=== PATIENT | female | born 1975 | race Caucasian/White ===

== ENCOUNTER 2016-07-11 01:32 | Emergency (ER) | payer MEDICAID ==
[2016-07-11] MEDS ORDERED: NS 1,000 ML IV ONE (01:37)
[2016-07-11] MEDS ORDERED: fentaNYL 100 MCG/2 ML INJ IVP ONE ×2 (01:37→02:07)
[2016-07-11] MEDS ORDERED: ONDANSETRON 4 MG/2 ML VIAL IVP ONE (01:37)
--- NOTE | 2016-07-11 01:43 | EDPHY ---
H & P HPI/ROS: HPI CHIEF COMPLAINT: Fall, head injury HISTORY OF PRESENT ILLNESS: This patient very pleasant 40-year-old female she does have significant past x-ray DVT however no longer on blood thinners or any anticoagulation no aspirin, history right knee surgery, presents to the emergency room after she slipped on a sidewalk on ice she fell directly backwards with a head strike. No LOC. She does have nausea but no vomiting. She was brought to the emergency room as a GCS 15, alert and oriented x4, mentating appropriately. She complains of posterior right headache. With associated nausea. She was given Zofran and intranasal fentanyl 100 mcg by EMS EN route however she still complains of a throbbing 6/10 right-sided posterior headache. Does still endorse nausea. Denies any other areas of injury specifically denies arm pain, chest pain, shortness of breath, abdominal pain or back pain. She does admit to alcohol this evening she tells me she had 2 beers. Past Medical History: DVT, history of closed head injury, Past Surgical History: Right knee surgery x2 Social History: Occasional alcohol use, denies drugs or tobacco products, unemployed, lives in [place] Family History: Noncontributory ROS REVIEW OF SYSTEMS: A comprehensive 10 point review of systems is otherwise negative aside from elements mentioned in the history of present illness. Exam Constitutional GCS 15, alert and oriented x4, triage nursing summary reviewed , vital signs reviewed, awake/alert. Eyes normal conjunctivae and sclera, EOMI, PERRLA. HENT head/neck: right posterior occiput hematoma, no laceration, it is tender palpation, no crepitus, no significant cervical spine tenderness or step-offs, moist mucus membranes, no epistaxis, neck supple/ no meningismus, no raccoon eyes. Respiratory clear to auscultation bilaterally, normal breath sounds, no respiratory distress, no wheezing. Cardiovascular rate normal, regular rhythm, no murmur, no edema, distal pulses normal. Gastrointestinal soft, non-tender, no rebound, no guarding, normal bowel sounds, no distension, no pulsatile mass. Genitourinary no CVA tenderness. Musculoskeletal no midline vertebral tenderness, full range of motion, no calf swelling, no tenderness of extremities, no meningismus, good pulses, neurovascularly intact. Skin pink, warm, & dry, no rash, skin atraumatic. Neurologic awake, alert and oriented x 3, AAOx3, moves all 4 extremities equally, motor intact, sensory intact, CN II-XII intact, normal cerebellar, normal vision, normal speech. Psychiatric normal mood/affect. Heme/Lymph/Immune no lymphadenopathy. Differential Diagnosis: Includes but is not limited to in a particular order, closed head injury injury, cervical spine injury, closed head injury, intracranial bleed, subdural Medical Decision Making: Due to this patient's nausea and pain she will have an IV established receive a fluid bolus, Zofran IV fentanyl. She will need a CT scan of the neck for trauma , no significant signs of neck trauma exam however does have history acting injury right occipital hematoma, and had alcohol this evening. This patient had a CT head and CT cervical spine rule out significant trauma Re-evaluation: CT scan of the Head without IV contrast for trauma. The results of the study are negative for acute traumatic injury no skull fracture, no bleed. The study was read by Dr. Preston I viewed the images myself on the PACS system. CT scan of the cervical spine without IV contrast for trauma The results of the study are negative for acute traumatic injury The study was read by Dr. Preston. I viewed the images myself on the PACS system. 0240: Re-examination at this time this patient is up ambulating without difficulty, unremarkable neurological exam she is not vomiting her pain is well control with 100 mcg IV fentanyl given here in the emergency room. Is noted her blood alcohol level is 200. Her CT scan of her head and neck have been reviewed and are normal. She is agreeable going home most likely she has closed- head injury, concussion I prescribed her Tylenol for pain control and Zofran for nausea. She does understand strict return precautions she understands return to the emergency room if she develops any worsening symptoms this includes worsening headache, vomiting or questions or concerns. Source: Patient - Medical/Surgical History Hx Asthma: No Hx Chronic Respiratory Disease: No Hx Diabetes: No Hx Cardiac Disease: No Hx Renal Disease: No Hx Cirrhosis: No Hx Alcoholism: No Hx HIV/AIDS: No Hx Splenectomy or Spleen Trauma: No Other PMH: Torn ACL. Fornix suture closure, depression, DVT. - Social History Smoking Status: Never smoked Constitutional: Initial Vital Signs Temperature (C) 36.8 C 07/11/16 01:35 Heart Rate 89 01/09/17 01:35 Respiratory Rate 16 07/11/16 01:35 Blood Pressure 125/81 H 07/11/16 01:35 O2 Sat (%) 96 07/11/16 01:35 O2 Delivery Mode Room Air Allergies/Adverse Reactions: No Known Allergies Allergy (Verified 07/11/16 01:48) Home Medications: Medication Instructions Recorded ARIPiprazole [Abilify] 5 mg PO DAILY 09/25/14 Ondansetron HCl [Zofran] 4 mg PO Q4-6PRN PRN #10 tablet 07/11/16 Medical Decision Making - Data Points Laboratory Results: Laboratory Results 07/11/16 01:45 07/11/16 01:45 07/11/16 01:45 WBC 7.04 10^3/uL (3.80-9.50) RBC 4.58 10^6/uL (4.18-5.33) Hgb 14.5 g/dL (12.6-16.3) Hct 42.6 % (38.0-47.0) MCV 93.0 fL (81.5-99.8) MCH 31.7 pg (27.9-34.1) MCHC 34.0 g/dL (32.4-36.7) RDW 12.4 % (11.5-15.2) Plt Count 297 10^3/uL (150-400) MPV 9.2 fL (8.7-11.7) Neut % (Auto) 38.2 L % (39.3-74.2) Lymph % (Auto) 48.6 H % (15.0-45.0) [place] % (Auto) 7.8 % (4.5-13.0) Eos % (Auto) 2.4 % (0.6-7.6) Baso % (Auto) 0.7 % (0.3-1.7) Nucleat RBC Rel Count 0.0 % (0.0-0.2) Absolute Neuts (auto) 2.69 10^3/uL (1.70-6.50) Absolute Lymphs (auto) 3.42 H 10^3/uL (1.00-3.00) Absolute Monos (auto) 0.55 10^3/uL (0.30-0.80) Absolute Eos (auto) 0.17 10^3/uL (0.03-0.40) Absolute Basos (auto) 0.05 10^3/uL (0.02-0.10) Absolute Nucleated RBC 0.00 10^3/uL (0-0.01) Immature Gran % 2.3 H % (0.0-1.1) Immature Gran # 0.16 H 10^3/uL (0.00-0.10) PT 11.8 L SEC (12.0-15.0) INR 0.88 (0.83-1.16) APTT 22.7 L SEC (23.0-38.0) Sodium 144 mEq/L (134-144) Potassium 4.5 mEq/L (3.5-5.2) Chloride 105 mEq/L (97-110) Carbon Dioxide 25 mEq/l (22-31) Anion Gap 14 mEq/L (8-16) BUN 8 mg/dL (7-23) Creatinine 0.7 mg/dL (0.6-1.0) Estimated GFR > 60 Glucose 108 H mg/dL (70-100) Calcium 8.7 mg/dL (8.5-10.4) Ethyl Alcohol 205 H mg/dL (0-10) Medications Given: Discontinued Medications Fentanyl (Sublimaze) 50 mcg IVP EDNOW ONE Stop: 07/11/16 01:38 Last Admin: 07/11/16 01:48 Dose: 50 mcg Fentanyl (Sublimaze) 50 mcg IVP EDNOW ONE Stop: 07/11/16 02:08 Last Admin: 07/11/16 02:17 Dose: 50 mcg Sodium Chloride (Ns) 1,000 mls @ 0 mls/hr IV ONCE ONE PRN Reason: Wide Open Stop: 07/11/16 01:38 Last Admin: 07/11/16 01:56 Dose: 1,000 mls Departure - Departure Disposition: Home, Routine, Self-Care Clinical Impression: Closed head injury Qualifiers: Encounter type: initial encounter Qualifier Code: (S09.90XA) Unspecified injury of head, initial encounter Fall Qualifiers: Encounter type: initial encounter Qualifier Code: (W19.XXXA) Unspecified fall, initial encounter Concussion Qualifiers: Encounter type: initial encounter Loss of consciousness presence/duration: without LOC Qualifier Code: (S06.0X0A) Concussion without loss of consciousness , initial encounter Condition: Good Instructions: Concussion (ED), Post Concussion Syndrome (ED), Head Injury (ED) Additional Instructions: 1. stay well-hydrated 2. stay in a low stimulus environment for the next 24-48 hours 3. return to the emergency room if develops worsening headache, vomiting or questions or concerns. Referrals: [place],. [Primary Care Provider] - As per Instructions Xiao Gibson MD [Medical Doctor] - As per Instructions Prescriptions: Ondansetron HCl [Zofran] 4 mg PO Q4-6PRN PRN #10 tablet PRN Reason: Nausea/Vomiting, Use 1st
[2016-07-11 01:50] VITALS: RESP 16; TEMP 98.2; O2SAT 96
[2016-07-11 01:57] LABS: % IMMATURE GRANULYOCYTES 2.3 % (0.0-1.1); ABSOLUTE IMMATURE GRANULOCYTES 0.16 10^3/uL (0.00-0.10); ADD DIFF? NO; ADD MORPH? NO; ADD SCAN? NO; ATYPICAL LYMPHOCYTE FLAG 10 (0-99); FRAGMENT RBC FLAG 0 (0-99); HEMATOCRIT 42.6 % (38.0-47.0); HEMOGLOBIN 14.5 g/dL (12.6-16.3); LEFT SHIFT FLG 20 (0-99); LIPEMIA HEMOLYSIS FLAG 90 (0-99); MEAN CELL HEMOGLOBIN 31.7 pg (27.9-34.1); MEAN PLATELET VOLUME 9.2 fL (8.7-11.7); PLATELET CLUMPS FLAG 0 (0-99); PLATELET COUNT 297 10^3/uL (150-400); RED BLOOD CELL COUNT 4.58 10^6/uL (4.18-5.33); RED CELL DISTRIBUTION WIDTH 12.4 % (11.5-15.2)
[2016-07-11 02:09] LABS: ANION GAP 14 mEq/L (8-16); CALCIUM 8.7 mg/dL (8.5-10.4); CARBON DIOXIDE 25 mEq/l (22-31); CHLORIDE 105 mEq/L (97-110); CREATININE 0.7 mg/dL (0.6-1.0); ETHANOL SERUM 205 mg/dL (0-10); GLOMERULAR FILTRATION RATE > 60; GLUCOSE 108 mg/dL (70-100); POTASSIUM 4.5 mEq/L (3.5-5.2); SODIUM 144 mEq/L (134-144)
[2016-07-11 02:19] LABS: APTT 22.7 SEC (23.0-38.0); INR 0.88 (0.83-1.16); PROTIME(PATIENT) 11.8 SEC (12.0-15.0)
[2016-07-11 03:04] VITALS: BP 100/62; PULSE 84
--- NOTE | 2016-07-11 09:24 | CT ---
CT Brain (Without Contrast) 0152 hours History: Head trauma, headache. Fall and hit back of head. Comparison: None. Technique: Axial computed tomographic images of the brain without contrast. Dose reduction technique s were utilized. Findings: Ventricles, cisterns, and sulci are normal without atrophy, hydrocephalus, midline shift/h erniation, or epidural/subdural hematomas. No acute intraparenchymal hemorrhage, definite infarct, or mass effect. Bone windows demonstrate no displaced fractures. Paranasal sinuses and mastoid air cell s are clear. Impression: 1. Normal CT brain without contrast. 2. No epidural or subdural hematoma. Findings and recommendations discussed with Emergency Department physician, Dr. Demetris Peterson, at 0 220 hours today. Final report concurs with initial preliminary interpretation.
--- NOTE | 2016-07-11 09:31 | CT ---
CT Scan of the Cervical Spine (Without Contrast) (With Multiplanar Reconstructions) 0152 hours Clinical Indications: Fall, pain. Head trauma, headache. Fall and hit back of head. Technique: Thinly collimated multidetector helical CT imaging of the cervical spine was reviewed in multiple planes. Multiplanar reconstructions reviewed on [employer] workstation and performed to better e valuate alignment. Dose reduction techniques were utilized. Findings: No definite acute cervical spine fracture. Slight reversal of the normal lordotic curvatur e without cervical compression fractures or spondylolisthesis. Odontoid appears intact. Spinous proce sses appear intact. No craniocervical junction fractures. No bony central canal or neural foraminal s tenosis. No prevertebral soft tissue swelling. Impression: 1. No definite fracture. 2. If there is persistent pain or neurological deficit, recommend MR cervical spine and consider flex ion and extension views, if clinically indicated. Findings and recommendations discussed with Emergency Department physician, Dr. Demetris Peterson, at 0 220 hours today. Final report concurs with initial preliminary interpretation.
== END 2016-07-11 03:11 | disposition home or self-care (01) ==
LOC: EDBD → EDUNIT#
DX: S06.0X0A Concussion without loss of consciousness, initial encounter (principal); W00.0XXA Fall on same level due to ice and snow, initial encounter; Y92.89 Other specified places as the place of occurrence of the external cause; Y93.89 Activity, other specified
CPT/HCPCS: 96374; G0480; J2405; J3010

== ENCOUNTER → 2018-07-11 | Outpatient (CLI) | payer MEDICAID | LOC: FIMAGING 12:21 | PROVIDERS: ATTEND Family Medicine | DX: Z86.718 Personal history of other venous thrombosis and embolism (principal) ==

== ENCOUNTER 2018-07-17 05:51 | Day surgery (SDC) | payer MEDICAID ==
[2018-07-17] MEDS ORDERED: LIDOCAINE 1% 2 ML INJ ID PRN (06:12)
[2018-07-17] MEDS ORDERED: ACETAMINOPHEN 500 MG TAB PO ONE (06:12)
[2018-07-17] MEDS ORDERED: ceFAZolin 2 GM/DEXTROSE 100 ML IV ONE (06:12)
[2018-07-17] MEDS ORDERED: LR 1,000 ML IV ONE (06:12)
[2018-07-17] MEDS ORDERED: PREGABALIN 150 MG CAP PO ONE (06:12)
[2018-07-17] MEDS ORDERED: EPINEPHrine 30 MG/30 ML MDV (0.1 MG/0.1 ML) ONE (06:54)
[2018-07-17] MEDS ORDERED: BUPIVACAINE/EPI 0.5% 30 ML SDV ONE (06:54)
[2018-07-17] MEDS ORDERED: MIDAZOLAM 2 MG/2 ML VIAL IVP ONE ×2 (07:04→08:46)
--- NOTE | 2018-07-17 07:04 | PDANEPAE ---
ANE History of Present Illness left knee pain ANE Past Medical History - Cardiovascular History Hx Hypertension: No Hx Arrhythmias: No Hx Chest Pain: No Hx Coronary Artery / Peripheral Vascular Disease: No Hx CHF / Valvular Disease: No Hx Palpitations: No Cardiovascular History Comment: MILD ELEV BP RECENTLY - Pulmonary History Hx COPD: No Hx Asthma/Reactive Airway Disease: Yes Hx Recent Upper Respiratory Infection: No Hx Oxygen in Use at Home: No Hx Sleep Apnea: No Sleep Apnea Screening Result - Last Documented: Negative Pulmonary History Comment: HX ASTHMA - EXERCISE/ALTITUDE INDUCED - Neurologic History Hx Cerebrovascular Accident: No Hx Seizures: No Hx Dementia: No Neurologic History Comment: HEADACHES - Endocrine History Hx Diabetes: No Hypothyroid: No Hyperthyroid: No Obesity: mild - Renal History Hx Renal Disorders: No - Liver History Hx Hepatic Disorders: No - Neurological & Psychiatric Hx Hx Neurological and Psychiatric Disorders: Yes Neurological / Psychiatric History Comment: Depression, bipolar. - Cancer History Hx Cancer: No - Congenital Disorder History Hx Congenital Disorders: No - GI History GERD: no Hx Gastrointestinal Disorders: No Gastrointestinal History Comment: HX ULCERS 12/2016 - Other Health History Other Health History: DVT FOLLOWING DISLOCATED KNEE - SEEN IN ED 05/2018 - STARTED ON XARELTO BUT PT STATES STOPPED TAKING DUE TO SIDE EFFECTS. - Chronic Pain History Chronic Pain: Yes (L KNEE) - Surgical History Prior Surgeries: L KNEE REPAIR. R KNEE REPAIR X2. 2001-vaginal repair. ANE Review of Systems Review of systems is: negative Review of Systems: - Exercise capacity Exercise capacity: >=4 METS METS (RN): 4 METS ANE Patient History - Allergies Allergies/Adverse Reactions: No Known Allergies Allergy (Unverified 07/17/18 06:23) - Home Medications Home medications: home medication list seen and reviewed Home Medications: NK [No Known Home Meds] 07/17/18 [Last Taken Unknown] - NPO status NPO Status: no food or drink >8 hours NPO Since - Liquids (Date): 07/16/18 NPO Since - Liquids (Time): 02:20 NPO Since - Solids (Date): 07/16/18 NPO Since - Solids (Time): 21:00 - Anes Hx Anes Hx: no prior problems - Smoking Hx Smoking Status: Never smoked - Family Anes Hx Family Hx Anesthesia Complications: Adopted unknown. ANE Labs/Vital Signs - Vital Signs Vital Signs: reviewed preoperatively; see RN documention for details Blood Pressure: 120/79 Heart Rate: 70 Respiratory Rate: 18 O2 Sat (%): 97 Height: 160.02 cm Weight: 79.379 kg ANE Physical Exam - Airway Neck exam: FROM Mallampati Score: Class 2 Mouth exam: normal dental/mouth exam - Pulmonary Pulmonary: no respiratory distress - Cardiovascular Cardiovascular: regular rate and rhythym - ASA Status ASA Status: II ANE Anesthesia Plan Anesthesia Plan: GA w LMA Regional Anesthesia: single shot NB, adductor canal FNB
[2018-07-17] MEDS ORDERED: PROPOFOL 200 MG/20 ML VIAL ONE ×2 (07:10→07:40)
[2018-07-17] MEDS ORDERED: fentaNYL 100 MCG/2 ML INJ ONE ×3 (07:10→08:39)
--- NOTE | 2018-07-17 07:13 | PDHPUP ---
History & Physical Update H&P update statement: This history and physical update is based on an assessment of the patient which was completed after admission or registration (within 24 hours), but prior to the surgery/procedure. H&P update: H&P reviewed & patient examined, no change in patient's condition since H&P completed
[2018-07-17] MEDS ORDERED: PROMETHAZINE HCL 25 MG/ML INJ IVP PRN ×2 (07:57→08:36)
[2018-07-17] MEDS ORDERED: MEPERIDINE 25 MG/0.5 ML AMP IVP PRN (07:57)
[2018-07-17] MEDS ORDERED: NALOXONE HCL 0.4 MG/ML INJ IVP PRN (07:57)
[2018-07-17] MEDS ORDERED: LABETALOL HCL 5 MG/ML 20 ML MDV IVP PRN (07:57)
[2018-07-17] MEDS ORDERED: METOCLOPRAMIDE 10 MG/2 ML VIAL IVP PRN ×2 (07:57→08:36)
[2018-07-17] MEDS ORDERED: oxyCODONE IR 5 MG TAB PO PRN (07:57)
[2018-07-17] MEDS ORDERED: ACETAMINOPHEN 500 MG TAB PO PRN (07:57)
[2018-07-17] MEDS ORDERED: PHENYLEPHRINE HCL 100 MCG/ML SYR IVP PRN (07:57)
[2018-07-17] MEDS ORDERED: ALBUTEROL 3 ML DEYVIAL IH PRN (07:57)
[2018-07-17] MEDS ORDERED: LR 500 ML IV PRN (07:57)
[2018-07-17] MEDS ORDERED: CALCIUM CHLORIDE 1 GM/10 ML INJ ONE (08:06)
[2018-07-17] MEDS ORDERED: THROMBIN (BOVINE) 5,000 UNIT VIAL TP ONE (08:06)
[2018-07-17] MEDS ORDERED: ONDANSETRON 4 MG/2 ML VIAL ONE (08:26)
[2018-07-17] MEDS ORDERED: LIDOCAINE 2% 5 ML SDV ONE (08:27)
[2018-07-17] MEDS ORDERED: DEXAMETHASONE 4 MG/ML VIAL ONE (08:27)
[2018-07-17] MEDS ORDERED: LACTULOSE 20 GM/30 ML UDCUP PO PRN (08:36)
[2018-07-17] MEDS ORDERED: BISACODYL 10 MG SUPP PR PRN (08:36)
[2018-07-17] MEDS ORDERED: ONDANSETRON 4 MG/2 ML VIAL IVP PRN (08:36)
[2018-07-17] MEDS ORDERED: MAGNESIUM HYDROXIDE 30 ML UDCUP PO PRN (08:36)
[2018-07-17] MEDS ORDERED: CYCLOBENZAPRINE 10 MG TAB PO PRN (08:36)
[2018-07-17] MEDS ORDERED: TEMAZEPAM 15 MG CAP PO PRN (08:36)
[2018-07-17] MEDS ORDERED: diphenhydrAMINE 25 MG CAP PO PRN (08:36)
[2018-07-17] MEDS ORDERED: DIPHENOXYLATE/ATROPINE LOMOTIL 1 TAB PO PRN (08:36)
[2018-07-17] MEDS ORDERED: KETOROLAC 15 MG/1 ML SDV IVP ONE (08:36)
[2018-07-17] MEDS ORDERED: TAPENTADOL HCL 50 MG TAB PO PRN (08:36)
[2018-07-17] MEDS ORDERED: POLYETHYLENE GLYCOL 3350 17 GM PKT PO PRN (08:36)
[2018-07-17] MEDS ORDERED: ONDANSETRON DISINTEGRATING 4 MG TAB PO PRN (08:36)
[2018-07-17] MEDS ORDERED: PROMETHAZINE HCL 25 MG SUPPR PR PRN (08:36)
--- NOTE | 2018-07-17 08:36 | POSTOPPROG ---
Post Op Note Date of Operation: 07/17/18 Surgeon: Brook Corea Anesthesia: LMA, Other (Specify) Pre-op Diagnosis: l mmt/lmt/hoffa pad impingement/pfs Procedure: l knee scope with partial m/l menisectomy/synovectomy/lateral release Inf/Abcess present in the surg proc area at time of surgery?: No Depth: Superfical (Skin SQ) EBL: 50-100
[2018-07-17] MEDS ORDERED: HYDROmorphONE/DILAUDID 2 MG/ML INJ ONE (08:39)
[2018-07-17] MEDS: fentaNYL 100 MCG/2 ML INJ IVP PRN ×2 (08:40→09:11)
[2018-07-17] MEDS: HYDROmorphONE/DILAUDID 2 MG/ML INJ IVP PRN ×4 (08:42→09:23)
[2018-07-17] MEDS ORDERED: MIDAZOLAM 2 MG/2 ML VIAL ONE (08:45)
[2018-07-17] MEDS ORDERED: SENNOSIDES/DOCUSATE SODIUM TAB PO SCH (09:00)
[2018-07-17] MEDS ORDERED: LR 1,000 ML IV SCH (09:00)
--- NOTE | 2018-07-17 09:18 | GHP ---
CURRENT COMPLAINT: Left knee pain. HISTORY OF PRESENT ILLNESS: The patient is a 42-year-old female with a history of Hoffa pad impingem ent, loose body, patellofemoral instability. She wished to have surgery to resolve the problem. She has no drug allergies. Current medication includes pantoprazole. Prior medical problems include ulcers and blood clots. Prior surgeries include ACL reconstruction X2. She has never been a smoker . She is a social drinker. PHYSICAL EXAMINATION: HEENT: The patient's pupils are equal, round, and reactive to light. CHEST: Clear to auscultation. HEART: Regular rate and rhythm. ABDOMEN: Soft and nontender. EXTREMITIES : Knee reveals an effusion to the knee. She is tender to the medial and lateral joint lines. She h as tenderness across the Hoffa pad. MRI exam reveals mild osteoarthritic changes to the medial compartment and enlarged Hoffa pad with __ patella. ASSESSMENT AND PLAN: The patient is status post left knee possible impingement with patellar instabi lity. She is to undergo a left knee scope with Hoffa pad debridement and lateral release. /[id number]/MODL
[2018-07-17] MEDS ORDERED: KETOROLAC 15 MG/1 ML SDV ONE (09:25)
[2018-07-17] MEDS ORDERED: oxyCODONE IR 5 MG TAB ONE (10:06)
--- NOTE | 2018-07-17 10:41 | POSTANESTH ---
Post Anesthetic Evaluation Cardiovascular Status: Normal, Stable Respiratory Status: Normal, Stable Level of Consciousness/Mental Status: Can Participate in Eval Pain Control: Adequate, Prn Tx Ordered Nausea/Vomiting Control: Adequate, Prn Tx Ordered Complications Possibly Related to Anesthesia: None Noted
[2018-07-17 11:02] VITALS: BP 126/82
[2018-07-17] MEDS ORDERED: traMADol 50 MG TAB PO SCH (12:00)
--- NOTE | 2018-07-17 16:27 | GOP ---
DATE OF OPERATION: 07/17/2018 SURGEON: Brook Corea MD ANESTHESIA: LMA. 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 PROCEDURE PERFORMED: Left knee arthroscopy with partial medial and partial lateral meniscectomy, ext ensive synovectomy as well as arthroscopic lateral release. FINDINGS: INDICATIONS: This is a 42-year-old female with a several-month history of left knee pain worsening w ith use with time. MRI exam revealed an abundant amount of synovium associated with the Hoffa pad as well as in the suprapatellar pouch and a lateral riding patella within the trochlear groove. She wi shes to have surgery in order to resolve the problem. DESCRIPTION OF PROCEDURE: The patient was brought to the operating room after the left side had been identified as the correct side by the patient, nurse, and physician. Once in the operating room, becca denton was placed under general anesthesia using an LMA. She was placed in a supine position with tourniq uet placed around the upper portion of the left thigh, and both legs placed in an appropriate leg hol gab. The left lower extremity was then fully prepped and draped in the usual fashion using GSI solut ion. Once prepped and draped, the limb was exsanguinated and tourniquet inflated to 250 mmHg. An in cision was made in the superomedial portion of the knee with an outflow trocar used without difficult y. A 2nd incision was made lateral to the patellar tendon between the inferior pole of the patella a nd tibial plateau with the camera introduced without difficulty. Inspection of the joint revealed a moderate amount of synovium in the suprapatellar pouch as well as grade 2-3 chondral changes noted of the patella and grade 2 chondral change noted of the trochlea. The patella was noted to sit very la terally within the trochlear groove. Further inspection revealed the ACL graft to be intact although frayed. Inspection of the medial compartment revealed no significant chondral changes but a tearing of the root of the medial meniscus. Inspection of the lateral compartment revealed no significant c hondral changes as well as tearing of the root of the lateral meniscus and an abundant amount of syno vium anteriorly. Therefore, a third incision was made medial to the patellar tendon between the infe rior pole of the patella and tibial plateau. A 4.0 mm smooth shaver was used to debride and debulk t he abundant amount of synovium in the anterior portion of the knee, the medial and lateral gutters as well as suprapatellar pouch. The shaver was also used to remove the frayed portions of meniscus at the posterior horns of the medial and lateral menisci as well as some of the frayed portion of the AC L. Once completed, the camera was switched to the medial portal, and an arthroscopic Bovie tip was b rought through the lateral portal and used to create a lateral release extending from the suprapatell ar pouch and extending to the level near the medial meniscus. Once completed, pictures were taken sh owing the patella being in a much more central position within the trochlear groove. Therefore all i nstruments were then removed from the knee with 30 cc of Marcaine infused in the knee joint. The 3 p ortal sites were closed using 3-0 nylon suture in a [id number] type stitch. The wounds were see ssed with Xeroform, 4 x 4, wrapped in Webril. The tourniquet was released at 34 minutes. Leg was co mpletely undraped in the operative, taken out of its leg anton, tourniquet removed from the thigh an d an Carlos Alberto wrap placed around the knee. The right leg was taken out of its leg anton. She was placed supine. She was woken up, extubated, transferred onto a stretcher, and sent to recovery room in goo d condition. TOURNIQUET TIME: 34 minutes. /[id number]/MODL
[2018-07-17] MEDS ORDERED: FAMOTIDINE 20 MG TAB PO SCH (21:00)
== END 2018-07-17 11:04 | disposition home or self-care (01) ==
LOC: FSGY 05:51
PROVIDERS: ATTEND Orthopaedic Surgery
PROC: 0SBD4ZZ Excision of Left Knee Joint, Percutaneous Endoscopic Approach (ICD-10-PCS; principal; 2018-07-17 07:15)
PROC: 0MNP4ZZ Release Left Knee Bursa and Ligament, Percutaneous Endoscopic Approach (ICD-10-PCS; principal; 2018-07-17 07:15)
DX: M76.892 Other specified enthesopathies of left lower limb, excluding foot (principal); M22.02 Recurrent dislocation of patella, left knee; M23.222 Derangement of posterior horn of medial meniscus due to old tear or injury, left knee; M23.252 Derangement of posterior horn of lateral meniscus due to old tear or injury, left knee; J45.909 Unspecified asthma, uncomplicated; F31.9 Bipolar disorder, unspecified
CPT/HCPCS: J0171; J0690; J1100; J1170; J1885; J2250; J2405; J2704; J3010

== ENCOUNTER 2018-07-23 13:22 | Inpatient (IN) | payer MEDICAID ==
[2018-07-23] MEDS ORDERED: NS 2,400 ML IV ONE (14:01)
[2018-07-23 14:09] LABS: PLATELET COUNT 323 10^3/uL (150-400)
[2018-07-23] MEDS ORDERED: HYDROmorphONE/DILAUDID 2 MG/ML INJ IVP ONE ×2 (14:13→14:46)
[2018-07-23 14:17] LABS: INR 0.91 (0.83-1.16); PROTIME(PATIENT) 12.5 SEC (12.0-15.0)
[2018-07-23] MEDS ORDERED: HYDROmorphONE/DILAUDID 1 MG/ML INJ ONE (14:34)
[2018-07-23] MEDS ORDERED: LORazepam 2 MG/ML INJ ONE ×2 (14:44→17:54)
[2018-07-23] MEDS ORDERED: LORazepam 2 MG/ML INJ IVP ONE ×3 (14:46→17:49)
--- NOTE | 2018-07-23 15:10 | EDPHY ---
General - History Smoking Status: Never smoked Time Seen by Provider: 07/23/18 14:01 Narrative: CLINICAL IMPRESSION: Left pulmonary emboli, postoperative knee pain ASSESSMENT/PLAN: 42-year-old female with past medical history of chronic knee dislocations, bilateral lower extremity DVTs, and recent arthroscopic surgery of the left knee by Dr. Corea presents to the emergency department with palpitations, shortness of breath, and worsening left knee pain and swelling over the last 2 days. Patient was taken off her anticoagulation therapy, Xarelto, 2 days preoperatively and restarted 4 days ago. She is 6 days postop. She is highly anxious, tearful, reports a history of feeling as though she is suffocating at night and has had elevated heart rate. She arrives significantly tachycardic, but without respiratory distress, hypoxia or fever. Leg is without significant erythema, warmth, wound dehiscence. She has no leukocytosis, renal insufficiency, electrolyte imbalance. Ultrasound of the leg is negative for DVT. Lactate is normal. Pain well controlled with IV analgesics and Ativan. Given multiple risk factors CTA was performed showing 2 small left-sided pulmonary emboli with no mention of corresponding cor pulmonale. On reassessment, patient states she is"just feeling poorly". She cannot ambulate to the restroom. Will plan to admit to the hospitalist service for further anticoagulation management and pain control. Dr. Trejo with Orthopedics was alerted to the patient's admission for orthopedic consultation. She was stabilized in the ED prior to admission. Case discussed with hospitalist and Dr. Sow. DIFFERENTIAL DX: Differential includes but not limited to postop infection, septic joint, assess bacteremia, DVT, PE, poorly-controlled postoperative pain ED PROCEDURES: See lab and/or imaging results below ED COURSE: 3:00 p.m.: Ultrasound results discussed with Radiology no evidence of DVT to the left leg. 3:20 p.m.: Diagnostic evaluation thus far and lab results reviewed with the patient. She is feeling better with Ativan but pain is still at 3/10. She continues to be tachycardic at 105., oxygen remains at 97% on room air. However given patient's history of DVTs, recent surgery, and reported shortness of breath I will pursue CTA to rule out PE. 3:30 p.m.: Case, diagnostic workup and laboratory evaluation discussed with Dr. Sow. She will evaluate the patient upon returning from CTA CHIEF COMPLAINT: Left knee and leg pain HPI: 42-year-old female presents to the emergency department 6 days postop left knee surgery by Dr. Corea for lateral release secondary to frequent knee dislocations. Patient reports she also had her ACL"touched up". She has been managing pain with CBD oil and occasional Vicodin. She does have a history of DVTs to both legs secondary to need locations and was on Xarelto prior to surgery. She restarted Xarelto 4 days ago at 20 mg daily. She states over last 2 days she has had uncontrolled pain to the knee, increased swelling, subjective fevers, and panic attacks. She reports contacting her orthopedic office 3 days ago with concerns of the panic attacks and received a prescription for Valium. She states she feels short of breath but thinks this may be panic. Despite icing and elevating she is not able to control her pain at all. No reported loss of sensation to the foot or toes. No history of PE. PAST MEDICAL HISTORY: Frequent left knee dislocations, history of anxiety and panic, history of DVTs See nurse/triage notes for additional history if applicable Pertinent Past Surgical History: Left knee surgery Family History: None reported Social History: Nonsmoker, here with her significant other REVIEW OF SYSTEMS: All other systems negative Constitutional: Positive for subjective fever, no chills, appetite change. Cardiovascular: No chest pain, no palpitations. Respiratory: No cough, positive for shortness of breath. Gastrointestinal: No abdominal pain, no vomiting, diarrhea. Genitourinary: No hematuria, dysuria, flank pain, pelvic pain Musculoskeletal: No back pain, positive for joint swelling, positive for joint pain, myalgias. Skin: No rashes, color change. Neurological: No headache, dizziness, weakness. PHYSICAL EXAM: General Appearance: Alert, oriented, very anxious, tearful, shaking, appears highly anxious, non-toxic appearing, tachycardic, afebrile no hypoxia. HEENT: Oropharynx clear is no erythema or exudates, no tonsillar hypertrophy or asymmetry. Dentition without abnormality. Respiratory: There are no retractions, lungs are clear to auscultation. Cardiac: Tachycardic, regular rhythm, no murmurs or gallops. Neurological: Alert and oriented x 3, CN 2-12 grossly intact gait not assessed patellar DTRs not assessed due to pain and swelling, normal sensation Skin: [Mild erythema noted to left knee. This is not hot to the touch. Mild warmth appreciated. No wound dehiscence or discharge from incision sites. Limited range of motion due to pain. Contusion noted to the proximal lateral aspect of the knee extending proximally up the thigh. Musculoskeletal: Increased swelling to left knee compared to right. Surgical incision sites intact. Limited range of motion due to pain. Distal neurovascular exam intact. Compartments soft. Psychiatric: Patient is oriented X 3, there is no agitation. Highly anxious, tearful MEDICAL DECISION MAKING: Secondary supervising physician at time of evaluation was Dr. Sow. Diagnosis: Acute left-sided pulmonary emboli, postoperative left knee pain. New , requires workup Summary: See Assessment and Plan for summary of ED visit Clinical lab tests: ordered / reviewed. Independent visualization of images, tracing, or specimens: Yes. Decision to obtain medical records or history from someone other than the patient: Significant other Discussed with Dr. Sow, hospitalist, and Dr. Pelletier Patient Progress: stable . (Jabari Nolasco) Discussion: The patient was evaluated and managed by the Physician Building Illuminating Engineer. I discussed the patient's presentation and course with the physician reference assistant and agree with the evaluation. My co-signature indicates that I have reviewed this chart and I agree with the findings and plan of care as documented. I am the secondary supervising physician. Patient is a 42 year old female who presents with anxiety, tachycardia, and SOB. She also has a warm, erythematous slightly swollen knee with limited ROM. Evaluation demonstrated two small PE's. Patient also seen by Dr Trejo in the ED. Please see his consultation. He did aspirate the knee to evaluate for post surgical infection. Aspirate was bloody, with 2 million RBC's and 1500 WBC 's. Ortho will follow and patient admitted to hospitalist service. (Emily Sow) - Objective Vital Signs: Initial Vital Signs Temperature (C) 36.8 C 07/23/18 13:27 Heart Rate 132 H 07/23/18 13:27 Respiratory Rate 20 07/23/18 13:27 Blood Pressure 106/78 07/23/18 13:27 O2 Sat (%) 98 07/23/18 13:27 O2 Delivery Mode Room Air Allergies/Adverse Reactions: No Known Allergies Allergy (Verified 07/23/18 13:25) Home Medications: Medication Instructions Recorded Albuterol [Proventil Inhaler HFA 1 - 2 puffs IH Q4H PRN 07/23/18 (*)] Herbals/Supplements -Info Only 1 ea PO DAILY 07/23/18 Ibuprofen [Motrin (*)] 400 mg PO BID PRN 07/23/18 Melatonin [Melatonin 5 mg] 5 mg PO HS PRN 07/23/18 Rivaroxaban [Xarelto] 20 mg PO DAILY 07/23/18 HYDROmorphone HCL [Dilaudid 2 mg 2 mg PO Q6H PRN #30 tab 07/25/18 (*)] LORazepam [Ativan (*)] 0.5 mg PO DAILY PRN #10 tab 07/25/18 Laboratory Results: Laboratory Results 07/24/18 04:38 07/24/18 04:38 Microbiology Results: MICROBIOLOGY 07/24/18 17:43 Knee - Aspirate Gram Stain - Final 07/24/18 17:43 Knee - Aspirate Anaerobic Culture - Preliminary Medications Given: Discontinued Medications Hydrocodone Bitart/Acetaminophen ([place] 5/325) 1 - 2 tab PO Q4HRS PRN PRN Reason: Pain, Moderate Able to Take PO Stop: 08/02/18 16:57 Last Admin: 07/24/18 07:46 Dose: 2 tab Hydromorphone HCl (Dilaudid) 1 mg IVP EDNOW ONE Stop: 07/23/18 14:14 Last Admin: 07/23/18 14:13 Dose: 1 mg Hydromorphone HCl (Dilaudid) 0.5 mg IVP EDNOW ONE Stop: 07/23/18 14:47 Last Admin: 07/23/18 15:03 Dose: Not Given Hydromorphone HCl (Dilaudid) 0.2 - 0.4 mg IVP Q4HRS PRN PRN Reason: BREAKTHROUGH PAIN Stop: 08/02/18 16:57 Last Admin: 07/25/18 09:17 Dose: 0.4 mg Hydromorphone HCl (Dilaudid) 2 mg PO Q4HRS PRN PRN Reason: Pain, Severe Able to Take PO Stop: 08/04/18 10:03 Last Admin: 07/25/18 13:27 Dose: 2 mg Sodium Chloride (Ns) 2,400 mls @ 4,800 mls/hr 30 ml/kg infuse over 30 min ( 2400 ml) IV EDNOW ONE PRN Reason: Protocol Stop: 07/23/18 14:30 Last Admin: 07/23/18 14:37 Dose: 2,400 mls Lorazepam (Ativan Injection) 1 mg IVP EDNOW ONE Stop: 07/23/18 14:47 Last Admin: 07/23/18 14:46 Dose: 1 mg Lorazepam (Ativan Injection) 1 mg IVP EDNOW ONE Stop: 07/23/18 14:47 Last Admin: 07/23/18 15:03 Dose: Not Given Lorazepam (Ativan Injection) 0.5 - 1 mg IVP Q4H PRN PRN Reason: ANXIETY, ABLE TO TAKE PO Stop: 01/19/19 16:57 Last Admin: 07/25/18 03:11 Dose: 1 mg Lorazepam (Ativan Injection) 2 mg IVP ONCE ONE Stop: 07/23/18 17:50 Last Admin: 07/23/18 18:04 Dose: 2 mg Lorazepam (Ativan) 0.5 mg PO Q4HRS PRN PRN Reason: Anxiety, Able to Take PO Stop: 01/21/19 09:59 Last Admin: 07/25/18 10:10 Dose: 0.5 mg Oxycodone HCl (Oxycodone Ir) 5 - 10 mg PO Q3HRS PRN PRN Reason: Pain, Severe Able to Take PO Stop: 08/02/18 16:57 Last Admin: 07/25/18 07:14 Dose: 10 mg Rivaroxaban (Xarelto) 20 mg PO DAILY AT 6PM SHAW Stop: 01/19/19 17:59 Last Admin: 07/24/18 17:35 Dose: 20 mg Departure - Departure Disposition: [facility] Inpatient Acute Clinical Impression: Postoperative pain of knee Pulmonary emboli Qualifiers: Pulmonary embolism type: other Chronicity: acute Acute cor pulmonale presence: without acute cor pulmonale Qualified Code(s): I26.99 - Other pulmonary embolism without acute cor pulmonale Condition: Fair
[2018-07-23] MEDS ORDERED: IOPAMIDOL (ISOVUE 370) 100 ML BTL IV ONE (15:42)
[2018-07-23] MEDS ORDERED: ACETAMINOPHEN 325 MG TAB PO PRN (16:58)
[2018-07-23] MEDS ORDERED: ONDANSETRON 4 MG/2 ML VIAL IVP PRN (16:58)
[2018-07-23] MEDS ORDERED: ONDANSETRON DISINTEGRATING 4 MG TAB PO PRN (16:58)
[2018-07-23] MEDS ORDERED: PROMETHAZINE HCL 25 MG/ML INJ IVP PRN (16:58)
[2018-07-23] MEDS: HYDROmorphONE/DILAUDID 1 MG/ML INJ IVP PRN (18:04)
--- NOTE | 2018-07-23 18:33 | GCON ---
HISTORY OF PRESENT ILLNESS: The patient is a very pleasant 42-year-old woman who underwent an arthro scopic lateral release for recurrent patellar instability. This was done 6 days ago. She noted incr eased pain over the last couple of days, redness, swelling, and a tactile fever at home. She also re ports some difficulty breathing. She had been diagnosed with a PE by the emergency room and currentl y being admitted to the hospital. I was asked to see and evaluate this patient. PHYSICAL EXAMINATION: She does have quite a bit of redness and swelling of the left knee more than I would expect for an arthroscopic procedure. She has limited range of motion. She has obvious effus ion with a ballotable patella. Neurovascularly, she is intact distally. There is no evidence of patrick ous congestion here. The incisions themselves are covered with Band-Aids and left in place. Knee ra nge of motion is quite painful and thus deferred. LABORATORY DATA: White count is noted to be 8.5. IMPRESSION: Pulmonary emboli, left knee effusion, status post lateral release arthroscopically by Dr Rubi Corea. PLAN: This effusion may be from infectious etiology. It may also be a bleed given that she started Xarelto. Nonetheless, I think it is certainly going to be therapeutic and hopefully diagnostic to pe rform an arthrocentesis here. I have asked the patient about it. I have also had a discussion with Isha Abdalla, a physician personal injury legal assistant who works with Dr. Corea, who agrees with the plan. I will perform t he arthrocentesis shortly and explained all risks, benefits, and alternatives of the procedure to the patient. /[id number]/MODL
[2018-07-23] MEDS: RIVAROXABAN 20 MG TAB PO SCH (19:26)
--- NOTE | 2018-07-23 19:44 | PDGENHP ---
History and Physical - Chief Complaint knee pain, sob - History of Present Illness 42 yo F with PMH of recurrent DVT and arthroscopic surgery 6 days ago for recurrent knee dislocation presenting with complaints of increased leg and knee pain as well as shortness of breath for the last week. She notes she held her xarelto 2 days prior and 2 days post operatively, and that immediately post op she developed significant shortness of breath and feeling as if she were suffocating. She called her surgeon who recommended she begin valium, that helped somewhat but the SOB continued and ultimately she felt she should come to the ER for further evaluation. She notes her leg is more swollen and bruised now than it was in the immediate post op period. She has not had chest pain but has had shortness of breath and feeling as if she were being smothered. She denies any fever or chills, has not had any other new complaints. At the time of my evaluation patient is tearful and very anxious, states she is scared. States her pain is out of control. History Information - Allergies/Home Medication List Allergies/Adverse Reactions: No Known Allergies Allergy (Verified 07/23/18 13:25) Home Medications: Albuterol [Proventil Inhaler HFA (*)] 1 - 2 puffs IH Q4H PRN 07/23/18 [Last Taken 07/21/18] Diazepam [Valium 5 MG (*)] 10 mg PO HS 07/23/18 [Last Taken 07/23/18 08:00 5MG] Herbals/Supplements -Info Only 1 ea PO DAILY 07/23/18 [Last Taken 07/23/18 08:00 ] Hydrocodone/APAP 5/325 [[place] 5/325 (*)] 2 each PO Q4 PRN 07/23/18 [Last Taken 07/23/18 09:00] Ibuprofen [Motrin (*)] 400 mg PO BID PRN 07/23/18 [Last Taken 07/23/18 09:00] Melatonin [Melatonin 5 mg] 5 mg PO HS PRN 07/23/18 [Last Taken 07/22/18] Rivaroxaban [Xarelto] 20 mg PO DAILY 07/23/18 [Last Taken 07/23/18 08:00] I have personally reviewed and updated: family history, medical history, social history, surgical history - Past Medical History DVT (recurrent), psychiatric history (anxiety) Additional medical history: recurrent knee dislocations - Surgical History Additional surgical history: mulitiple knee surgeries - Family History Additional family history: adopted and family history is unknown - Social History Smoking Status: Never smoked Alcohol Use: Occasionally Drug Use: Marijuana Review of Systems Review of Systems: ROS: 10pt was reviewed & negative except for what was stated in HPI & below Physical Exam Physical Exam: Temp Pulse Resp BP Pulse Ox 37.2 C 98 18 120/74 92 07/23/18 18:42 07/23/18 18:42 07/23/18 18:42 07/23/18 18:42 07/23/18 18:42 Constitutional: obese, uncomfortable Eyes: PERRL, anicteric sclera Ears, Nose, Mouth, Throat: moist mucous membranes, hearing normal Cardiovascular: regular rate and rhythym, no murmur, rub, or gallop, edema Respiratory: no respiratory distress, no rales or rhonchi, clear to auscultation Gastrointestinal: normoactive bowel sounds, soft, non-tender abdomen Genitourinary: no bladder tenderness Skin: warm, other (ecchymosis) Musculoskeletal: asymmetric calves, joint effusion Neurologic: AAOx3 Psychiatric: not encephalopathic, anxious, agitated Lab Data & Imaging Review 07/23/18 13:50 07/23/18 13:50 WBC 8.34 10^3/uL (3.80-9.50) 07/23/18 13:50 RBC 3.93 10^6/uL (4.18-5.33) L 07/23/18 13:50 Hgb 12.6 g/dL (12.6-16.3) 07/23/18 13:50 Hct 37.5 % (38.0-47.0) L 07/23/18 13:50 MCV 95.2 fL (81.5-99.8) 07/23/18 13:50 MCH 32.1 pg (27.9-34.1) 07/23/18 13:50 MCHC 33.7 g/dL (32.4-36.7) 07/23/18 13:50 RDW 13.1 % (11.5-15.2) 07/23/18 13:50 Plt Count 323 10^3/uL (150-400) 07/23/18 13:50 MPV 9.5 fL (8.7-11.7) 07/23/18 13:50 Neut % (Auto) 64.1 % (39.3-74.2) 07/23/18 13:50 Lymph % (Auto) 24.5 % (15.0-45.0) 07/23/18 13:50 [place] % (Auto) 6.8 % (4.5-13.0) 07/23/18 13:50 Eos % (Auto) 2.9 % (0.6-7.6) 07/23/18 13:50 Baso % (Auto) 0.7 % (0.3-1.7) 07/23/18 13:50 Nucleat RBC Rel Count 0.0 % (0.0-0.2) 07/23/18 13:50 Absolute Neuts (auto) 5.35 10^3/uL (1.70-6.50) 07/23/18 13:50 Absolute Lymphs (auto) 2.04 10^3/uL (1.00-3.00) 07/23/18 13:50 Absolute Monos (auto) 0.57 10^3/uL (0.30-0.80) 07/23/18 13:50 Absolute Eos (auto) 0.24 10^3/uL (0.03-0.40) 07/23/18 13:50 Absolute Basos (auto) 0.06 10^3/uL (0.02-0.10) 07/23/18 13:50 Absolute Nucleated RBC 0.00 10^3/uL (0-0.01) 07/23/18 13:50 Immature Gran % 1.0 % (0.0-1.1) 07/23/18 13:50 Immature Gran # 0.08 10^3/uL (0.00-0.10) 07/23/18 13:50 ESR 16 MM/HR (0-20) 07/23/18 13:50 PT 12.5 SEC (12.0-15.0) 07/23/18 13:50 INR 0.91 (0.83-1.16) 07/23/18 13:50 APTT 25.2 SEC (23.0-38.0) 07/23/18 13:50 VBG Lactic Acid 0.9 mmol/L (0.7-2.1) 07/23/18 15:10 Sodium 135 mEq/L (135-145) 07/23/18 13:50 Potassium 4.1 mEq/L (3.5-5.2) 07/23/18 13:50 Chloride 99 mEq/L (97-110) 07/23/18 13:50 Carbon Dioxide 23 mEq/l (22-31) 07/23/18 13:50 Anion Gap 13 mEq/L (6-14) 07/23/18 13:50 BUN 12 mg/dL (7-23) 07/23/18 13:50 Creatinine 0.7 mg/dL (0.6-1.0) 07/23/18 13:50 Estimated GFR > 60 07/23/18 13:50 Glucose 120 mg/dL (70-100) H 07/23/18 13:50 Calcium 9.1 mg/dL (8.5-10.4) 07/23/18 13:50 Total Bilirubin 0.7 mg/dL (0.1-1.4) 07/23/18 13:50 C-Reactive Protein 17.1 mg/L (<10.0) H 07/23/18 13:50 C-React Prot High Sens 9.1 mg/L 07/23/18 13:50 Synovial Source SYNOVIAL 07/23/18 18:15 Synovial Color RED (CLS/PALE YL) 07/23/18 18:15 Synovial Appearance HAZY (CLEAR) H 07/23/18 18:15 Synovial WBC 1499 /mm3 (0-150) H 07/23/18 18:15 Synovial RBC 2060250 /mm3 (0-0) H 07/23/18 18:15 Visualized and Interpreted imaging results: Yes Interpretation: BLE US: no DVT. CTA chest: 2 small left sided PE Assessment & Plan Assessment: Pulmonary emboli (Acute) Postoperative pain of knee (Acute) 42 yo F with hx of recurrent DVT presenting with increased leg pain s/p arthroscopic surgery 6 days ago as well as sob found to have PE # PE: small volume with low PESI score, patient on RA. Occurred in the setting of being off of AC with hx of recurrent DVT in the perioperative period and likely due to that rather than failure of xarelto which will be continued. will get ecg to eval for any signs of right heart failure, will monitor overnight. No DVT on US. # leg swelling and pain post operatively: appreciate ortho consult, could be related to hematoma given starting xarelto post op versus possible post op infection, they plan for diagnostic arthrocentesis tonight, will hold off on any abx pending culture data given lack of systemic s/s of infection at this time # anxiety: patient very anxious and tearful/agitated, will provide prn ativan, she is currently not chronically on any psychiatric meds, previously was on abilify, has been started on valium recently per ortho. May benefit from OP psych f/u if this is not established. # observation status # Patient new to my care. Old records reviewed and summarized as above. Care plan reviewed with ER doctor including plans for ortho consult.
[2018-07-23] MEDS ORDERED: ALBUTEROL 3 ML DEYVIAL IH PRN (22:19)
[2018-07-23] MEDS ORDERED: ALBUTEROL IH PRN (22:19)
[2018-07-23] MEDS ORDERED: MDI IH PRN (22:19)
[2018-07-23] MEDS: HYDROCODONE/APAP 5/325 TAB PO PRN (22:28)
[2018-07-23] MEDS: LORazepam 2 MG/ML INJ IVP PRN (22:29)
[2018-07-24] MEDS: LORazepam 2 MG/ML INJ IVP PRN ×6 (02:33→23:04)
[2018-07-24] MEDS: HYDROCODONE/APAP 5/325 TAB PO PRN ×2 (02:42→07:46)
[2018-07-24 05:21] LABS: PLATELET COUNT 272 10^3/uL (150-400)
--- NOTE | 2018-07-24 08:26 | HOSPPROG ---
Hospitalist Progress Note Assessment/Plan: DIAGNOSES: # PE: small volume with low PESI score, patient on RA. # post op knee pain (07/17 had arthroscopic meniscal repair, lateral release for patellofem syndr) # hematoma at post op knee, s/p arthrocentesis # acute toxic metabolic encephalopathy # post hemorrhagic anemia # anxiety, hx of mental health disorders # Patient new to my care today Overall from a PE standpoint she is stable and probably close to ready for DC. But she is moderately confused, likely from pain and other meds, and between her encephalopathy and very poor mobility she will need ongoing hospital management. Managing her confusion is quite difficult w her severe pain, bleeding into knee, ongoing need for anticoagulation, etc. Needs ongoing hospital care for these issues as well as active bleeding/anticoag/PE PLANS: * anticoagulation * avoid sedating meds as able, difficult as above * encourage sitting up, attempts at ambulation * follow blood counts, no indication for transfusion but is anticoagulated and bleeding at recent operative site SUBJECTIVE: c/o ongoing severe knee pain despite analgesics, cold packs not getting up to sitting so far today poor appetite, no emesis no chills little chest pain denies headache OBJECTIVE Vitals reviewed: normal without fever Exam: groggy but awake and talkative during my exam; not willing to sit up due to pain ; is somewhat confused/disoriented, does not remember or comprehend what I ask or tell her well. no focal neuro findings skin warm dry color ok resps not labored lungs clear BSs heart regular abd soft nondistended nontender, bowel sounds present limbs warm, trace edema iv site ok LAB DATA: Hg down a bit at 10.5, wbc ok chem panel ok synovial fluid gross blood, neg gram stain Objective: Vital Signs Temp Pulse Resp BP Pulse Ox 36.9 C 74 14 131/72 H 93 07/24/18 07:28 07/24/18 07:28 07/24/18 07:28 07/24/18 07:28 07/24/18 07:28 Microbiology 07/24/18 17:43 Gram Stain - Final Knee - Aspirate Laboratory Results 07/24/18 04:38 07/24/18 04:38 07/23/18 07/24/18 07/25/18 06:59 06:59 06:59 Intake Total 1100 Output Total 2000 Balance -900 PT 12.5 SEC (12.0-15.0) 07/23/18 13:50 INR 0.91 (0.83-1.16) 07/23/18 13:50 - Time Spent With Patient Time Spent with Patient: greater than 35 minutes Time Spent with Patient: Greater than 35 minutes spent on this patients care, greater than 50% of time spent counseling, educating, and coordinating care regarding the above mentioned plan. ICD10 Worksheet Patient Problems: Problems Problem Status Onset Postoperative pain of knee Acute Pulmonary emboli Acute
--- NOTE | 2018-07-24 10:07 | ASMTCMCOM ---
CM Note CM Note Notes: Pt is a 42 y/o female admitted for pulmonary embolism and post operative knee pain. Pt has an EKG ordered. No therapies consulted at this time. Pt will most likely d/c independent when medically stable. CM available for changes. Plan: Independent Date Signed: 07/24/2018 10:07 AM Electronically Signed By:PHAN Mata
--- NOTE | 2018-07-24 11:16 | GPROG ---
DATE OF SERVICE: 07/24/2018 I saw and evaluated Laine this morning. She is doing a little bit better than she was last night. I have since reviewed her results, which demonstrate red synovial fluid with red count over 2 million, consistent with anthony blood. No crystals were seen. Interim gram stain was negative. PHYSICAL EXAMINATION: On physical exam, she does have a little bit of effusion and loss of limited range of motion. The compressive dressing was replaced. ASSESSMENT AND PLAN: I discussed this case with Dr. Corea, and will be in further communication with the patient regarding his plan. She is being anticoagulated, this probably explains her effusion in the left knee. I will defer entirely to Dr. Brook Corea regarding care moving forward. /[id number]/MODL MTDD
[2018-07-24] MEDS: oxyCODONE IR 5 MG TAB PO PRN ×4 (12:45→22:17)
[2018-07-24] MEDS: HYDROmorphONE/DILAUDID 1 MG/ML INJ IVP PRN ×2 (12:58→23:07)
[2018-07-24] MEDS: RIVAROXABAN 20 MG TAB PO SCH (17:35)
--- NOTE | 2018-07-24 18:05 | CPEKG ---
Test Reason : OPEN Blood Pressure : / mmHG Vent. Rate : 095 BPM Atrial Rate : 096 BPM P-R Int : 145 ms QRS Dur : 087 ms QT Int : 357 ms P-R-T Axes : 022 -29 015 degrees QTc Int : 449 ms Sinus rhythm Borderline left axis deviation Confirmed by Keira Manriquez ([id number]) on 07/24/2018 6:04:38 PM Referred By: Confirmed By:Keira Manriquez
--- NOTE | 2018-07-24 21:56 | PDMN ---
Medical Necessity Medical necessity: Pt meets IP criteria as of 07/24/18 per MD and [facility]-MD ( musculoskeletal disease); los > 2 mn for ongoing tx and management of PE s/p knee surgery with increased pain, effusion around operative knee, and metabolic encephalopathy; requiring anticoagulation with close monitoring d/t active bleeding in the knee, surgical consultation, pain control, and therapies.
[2018-07-25] MEDS: LORazepam 2 MG/ML INJ IVP PRN (03:11)
[2018-07-25] MEDS: HYDROmorphONE/DILAUDID 1 MG/ML INJ IVP PRN ×2 (03:11→09:17)
[2018-07-25] MEDS: oxyCODONE IR 5 MG TAB PO PRN (07:14)
--- NOTE | 2018-07-25 08:33 | HOSPPROG ---
Hospitalist Progress Note Assessment/Plan: #Small acute PE: Xarelto #Post-op knee hematoma/pain: arthrocentesis 07/24. Negative gram stain -Dr. Corea will visit later today #Acute metabolic encephalopathy: resolved #ABLA: monitor closely #Post-op pain: minimize opioids. PO dilaudid, ice, elevate #Anxiety: due to acute situation #Social: HIPPA violation. RN spoke with pt's mother without permission. manager services aware and addressing Disp: can DC later today if ok by orthopedics Subjective: upset last night b/c RN spoke with her mother without permission. Feeling very anxious Objective: Vital Signs Temp Pulse Resp BP Pulse Ox 36.8 C 86 17 115/72 92 07/25/18 07:42 07/25/18 07:42 07/25/18 07:42 07/25/18 07:42 07/25/18 07:42 07/24/18 07/25/18 07/26/18 05:59 05:59 05:59 Intake Total 400 Balance 400 PT 12.5 SEC (12.0-15.0) 07/23/18 13:50 INR 0.91 (0.83-1.16) 07/23/18 13:50 - Time Spent With Patient Time Spent with Patient: greater than 35 minutes Time Spent with Patient: Greater than 35 minutes spent on this patients care, greater than 50% of time spent counseling, educating, and coordinating care regarding the above mentioned plan. - Physical Exam Constitutional: no apparent distress, obese, other (mildly anxious) Ears, Nose, Mouth, Throat: moist mucous membranes Cardiovascular: regular rate and rhythym Respiratory: no respiratory distress, No no rales or rhonchi, No expiratory wheeze, No inspiratory crackles Gastrointestinal: normoactive bowel sounds Genitourinary: No johnson in urethra Musculoskeletal: other (left knee with effusion. No overlying erythema. Large hematoma lateral thigh, soft) Neurologic: AAOx3, CN II-XII Intact Psychiatric: interacting appropriately, anxious ICD10 Worksheet Patient Problems: Problems Problem Status Onset Postoperative pain of knee Acute Pulmonary emboli Acute
[2018-07-25] MEDS ORDERED: LORazepam 0.5 MG TAB PO PRN (10:00)
[2018-07-25] MEDS ORDERED: HYDROmorphONE/DILAUDID 2 MG TAB PO PRN (10:04)
[2018-07-25] MEDS ORDERED: LACTULOSE 20 GM/30 ML UDCUP PO PRN (10:16)
[2018-07-25] MEDS ORDERED: POLYETHYLENE GLYCOL 3350 17 GM PKT PO PRN (10:16)
[2018-07-25] MEDS ORDERED: BISACODYL 10 MG SUPP PR PRN (10:16)
[2018-07-25] MEDS ORDERED: MAGNESIUM HYDROXIDE 30 ML UDCUP PO PRN (10:16)
[2018-07-25 15:47] VITALS: BP 130/79
[2018-07-25] MEDS ORDERED: SENNOSIDES/DOCUSATE SODIUM TAB PO SCH (21:00)
--- NOTE | 2018-07-25 21:11 | GDS ---
DISCHARGE DIAGNOSES: 1. Acute small volume pulmonary embolism. 2. Left knee postoperative hematoma. 3. Acute blood loss anemia. 4. Anxiety. 5. Acute left knee pain. 6. Acute metabolic encephalopathy. HISTORY OF PRESENT ILLNESS AND HOSPITAL COURSE: A 42-year-old female with history of recurrent DVT and recent arthroscopic surgery on her left knee for recurrent knee dislocation. After surgery, noted increased leg and knee pain and SOB. Xarelto was held 2 days prior and 2 days after surgery. CTA demonstrated 2 small left-sided pulmonary emboli. 1. Acute pulmonary embolism: was off Xarelto for few days. This was resume. h/ o of prior DVTs. PCP will pursue hypercoagulable evaluation. 2. Postoperative left knee hematoma: aspirated by Dr. Trejo with no organisms seen on Gram stain. Ice and elevation. She follows up with Dr. Corea on Monday. 3. Postoperative knee pain: provide 1 week's worth of Dilaudid. Continue bowel regimen. She will follow up with Dr. Corea. 4. Anxiety: situational with hospitalization and complications. Provide a few Ativan at discharge. 5. Social issues: There was HIPAA violation as RN did discuss the patient's clinical status with mother who did not have permission. I reviewed this as well as nurse manager servicing. The patient accepted indiscretion and accepted apology. DISPOSITION: Patient is stable for discharge home. FOLLOWUP: 1. Primary care physician. 2. Dr. Corea. NEW MEDICATIONS: 1. Dilaudid. 2. Ativan 0.5. TIME SPENT: Time spent on discharge was greater than 45 minutes evaluating patient at bedside, counseling her on her pain, followup plan. /[id number]/MODL MTDD
== END 2018-07-25 17:21 | disposition home or self-care (01) | DRG 134 ==
LOC: F3E 18:19 → EEVIPCON 07-24 18:47 → OBSVTOIN 07-24 18:47
PROVIDERS: ADMIT Internal Medicine; ATTEND Internal Medicine
PROC: 0S9D3ZX Drainage of Left Knee Joint, Percutaneous Approach, Diagnostic (ICD-10-PCS; principal; 2018-07-24)
DX: I26.99 Other pulmonary embolism without acute cor pulmonale (principal); G93.41 Metabolic encephalopathy; L76.32 Postprocedural hematoma of skin and subcutaneous tissue following other procedure; D62 Acute posthemorrhagic anemia; F41.8 Other specified anxiety disorders; Z79.01 Long term (current) use of anticoagulants
CPT/HCPCS: 86141-90; 96374; G0378; J1170; J2060; J2405; Q9967